=== PATIENT | male | born 1940 | race Two or more races ===

== ENCOUNTER → 2017-10-23 | Outpatient (CLI) | payer OTHER ==
[~2017-10-23] VITALS: Ht 165.1 cm; Wt 65.8 kg
== END | disposition home or self-care (01) ==
LOC: OFIC 805 08:18
DX: H61.21 Impacted cerumen, right ear (principal); M27.2 Inflammatory conditions of jaws; R09.81 Nasal congestion

== ENCOUNTER → 2017-12-05 06:31 | Outpatient (CLI) | payer OTHER | END | disposition home or self-care (01) | LOC: LAB 06:31 | DX: D57.3 Sickle-cell trait (principal); D51.0 Vitamin B12 deficiency anemia due to intrinsic factor deficiency; D51.1 Vitamin B12 deficiency anemia due to selective vitamin B12 malabsorption with proteinuria; D51.3 Other dietary vitamin B12 deficiency anemia; D63.1 Anemia in chronic kidney disease; N18.3 Chronic kidney disease, stage 3 (moderate); E08.65 Diabetes mellitus due to underlying condition with hyperglycemia; R97.0 Elevated carcinoembryonic antigen [CEA]; I10 Essential (primary) hypertension; F33.9 Major depressive disorder, recurrent, unspecified; D50.8 Other iron deficiency anemias; D51.8 Other vitamin B12 deficiency anemias ==

== ENCOUNTER 2017-12-25 08:18 | Outpatient (CLI) | payer OTHER ==
[~2017-12-25] VITALS: Ht 152.4 cm; Wt 65.8 kg
== END 2017-12-25 08:48 | disposition home or self-care (01) ==
LOC: OFIC 805 08:18
DX: H90.3 Sensorineural hearing loss, bilateral (principal)

== ENCOUNTER 2018-08-21 07:19 | Outpatient (CLI) | payer OTHER | END 2018-08-21 07:24 | disposition home or self-care (01) | LOC: LAB 07:19 | DX: D57.3 Sickle-cell trait (principal); D51.0 Vitamin B12 deficiency anemia due to intrinsic factor deficiency; D51.1 Vitamin B12 deficiency anemia due to selective vitamin B12 malabsorption with proteinuria; D51.3 Other dietary vitamin B12 deficiency anemia; D63.1 Anemia in chronic kidney disease; N18.3 Chronic kidney disease, stage 3 (moderate); E08.65 Diabetes mellitus due to underlying condition with hyperglycemia; R97.0 Elevated carcinoembryonic antigen [CEA]; I10 Essential (primary) hypertension; F33.8 Other recurrent depressive disorders; D50.8 Other iron deficiency anemias; D51.8 Other vitamin B12 deficiency anemias ==

== ENCOUNTER 2021-01-05 12:04 | Outpatient (CLI) | payer OTHER | END 2021-01-05 12:15 | disposition home or self-care (01) | LOC: SONOGRAMA 12:04 → MAMO-SONO 12:45 | PROVIDERS: ATTEND Internal Medicine Hematology & Oncology | DX: N18.30 Chronic kidney disease, stage 3 unspecified (principal); I11.0 Hypertensive heart disease with heart failure; E11.9 Type 2 diabetes mellitus without complications ==

== ENCOUNTER 2021-02-02 07:34 | Outpatient (CLI) | payer OTHER | END 2021-02-02 07:35 | disposition home or self-care (01) | LOC: NUCLEAR 07:34 | PROVIDERS: ATTEND Internal Medicine Hematology & Oncology | DX: D57.3 Sickle-cell trait (principal); D51.0 Vitamin B12 deficiency anemia due to intrinsic factor deficiency; M81.0 Age-related osteoporosis without current pathological fracture; R97.0 Elevated carcinoembryonic antigen [CEA] | CPT/HCPCS: 77080; 78816; A9552 ==

== ENCOUNTER → 2021-04-01 07:15 | Outpatient (CLI) | payer OTHER | END | disposition home or self-care (01) | LOC: NUCLEAR 07:00 | PROVIDERS: ATTEND Internal Medicine Cardiovascular Disease | DX: I25.9 Chronic ischemic heart disease, unspecified (principal); I50.1 Left ventricular failure, unspecified | CPT/HCPCS: 78452; 93017; A9500; J0153 ==

== ENCOUNTER 2021-12-01 08:00 | Outpatient (CLI) | payer OTHER | END 2021-12-01 08:30 | disposition home or self-care (01) | LOC: PPH VACUNA 08:00 | PROVIDERS: ATTEND Emergency Medicine Pediatric Emergency Medicine | DX: Z23 Encounter for immunization (principal); Z71.85 Encounter for immunization safety counseling ==

== ENCOUNTER 2022-03-01 10:39 | Outpatient (CLI) | payer OTHER | END 2022-03-01 10:51 | disposition home or self-care (01) | LOC: SONOGRAMA 10:39 | PROVIDERS: ATTEND Internal Medicine Hematology & Oncology | DX: E04.2 Nontoxic multinodular goiter (principal) ==

== ENCOUNTER 2022-08-10 13:40 | Outpatient (CLI) | payer OTHER | END 2022-08-10 13:50 | disposition home or self-care (01) | LOC: PPH VACUNA 13:40 | PROVIDERS: ATTEND Emergency Medicine Pediatric Emergency Medicine | DX: Z23 Encounter for immunization (principal) ==

== ENCOUNTER 2022-10-11 07:07 | Outpatient (CLI) | payer OTHER | END 2022-10-11 07:15 | disposition home or self-care (01) | LOC: SONOGRAMA 07:07 | PROVIDERS: ATTEND Internal Medicine Cardiovascular Disease | DX: I71.40 Abdominal aortic aneurysm, without rupture, unspecified (principal) ==

== ENCOUNTER 2022-12-10 19:02 | Inpatient (IN) | payer OTHER ==
[~2022-12-10] VITALS: Ht 165.1 cm; Wt 68.0 kg
[2022-12-10] MEDS ORDERED: GLIPIZIDE XL2.5 MG PO (19:29)
[2022-12-10] MEDS ORDERED: PANTOPRAZOLE SO20 MG PO (19:30)
[2022-12-10] MEDS ORDERED: GLUMETZA500 MG PO (19:30)
[2022-12-10] MEDS ORDERED: ENALAPRIL M1 MG/1 ML PO (19:30)
[2022-12-10] MEDS ORDERED: ARICEPT5 MG PO (19:30)
[2022-12-10] MEDS ORDERED: CHILDREN'S ASPI81 MG PO (19:31)
[2022-12-10] MEDS ORDERED: SIMVASTATIN5 MG PO (19:31)
[2022-12-10] MEDS ORDERED: PAROXETINE7.5 MG PO (19:31)
[2022-12-10] MEDS ORDERED: AMITRIPTYLINE HC5 GM MC (19:32)
[2022-12-10] MEDS ORDERED: BUPROPION XL450 MG PO (19:32)
[2022-12-10] MEDS ORDERED: CLONAZEPAM0.125 MG PO (19:32)
[2022-12-10] MEDS ORDERED: KAPSPARGO SPRIN25 MG PO (19:32)
[2022-12-14] MEDS ORDERED: ZITHROMAX500 MG PO (16:59)
[2022-12-14] MEDS ORDERED: AMOX-CLAV 875-1 EAC1 PO (16:59)
[2022-12-14] MEDS ORDERED: INTESTINEX680 M1 PO (16:59)
== END 2022-12-14 17:56 | disposition home or self-care (01) | DRG 683 ==
LOC: ER 19:02 → MEDI 12-11 16:26
PROVIDERS: ADMIT Internal Medicine; ATTEND Internal Medicine
PROC: B020ZZZ Computerized Tomography (CT Scan) of Brain (ICD-10-PCS; 2022-12-10)
PROC: BW24ZZZ Computerized Tomography (CT Scan) of Chest and Abdomen (ICD-10-PCS; 2022-12-10)
PROC: 4A12X4Z Monitoring of Cardiac Electrical Activity, External Approach (ICD-10-PCS; principal; 2022-12-11)
PROC: BT4JZZZ Ultrasonography of Kidneys and Bladder (ICD-10-PCS; 2022-12-11)
PROC: B24BYZZ Ultrasonography of Heart with Aorta using Other Contrast (ICD-10-PCS; 2022-12-11)
DX: N17.9 Acute kidney failure, unspecified (principal); J44.1 Chronic obstructive pulmonary disease with (acute) exacerbation; E86.0 Dehydration; R09.02 Hypoxemia; R55 Syncope and collapse; E11.22 Type 2 diabetes mellitus with diabetic chronic kidney disease; I12.9 Hypertensive chronic kidney disease with stage 1 through stage 4 chronic kidney disease, or unspecified chronic kidney disease; N18.9 Chronic kidney disease, unspecified; G30.0 Alzheimer's disease with early onset; F02.80 Dementia in other diseases classified elsewhere, unspecified severity, without behavioral disturbance, psychotic disturbance, mood disturbance, and anxiety; Z79.84 Long term (current) use of oral hypoglycemic drugs

== ENCOUNTER 2023-08-28 07:19 | Outpatient (CLI) | payer OTHER ==
[~2023-08-28 07:19] MED LIST: AMITRIPTYLINE HC5 GM MC; AMOX-CLAV 875-1 EAC1 PO; ARICEPT5 MG PO; BUPROPION XL450 MG PO; CHILDREN'S ASPI81 MG PO; CLONAZEPAM0.125 MG PO; ENALAPRIL M1 MG/1 ML PO; GLIPIZIDE XL2.5 MG PO; GLUMETZA500 MG PO; INTESTINEX680 M1 PO; KAPSPARGO SPRIN25 MG PO; PANTOPRAZOLE SO20 MG PO; PAROXETINE7.5 MG PO; SIMVASTATIN5 MG PO; ZITHROMAX500 MG PO
== END 2023-08-28 07:24 | disposition home or self-care (01) ==
LOC: NUCLEAR 07:19
PROVIDERS: ATTEND Internal Medicine Hematology & Oncology
DX: R97.0 Elevated carcinoembryonic antigen [CEA] (principal); D51.0 Vitamin B12 deficiency anemia due to intrinsic factor deficiency; D51.3 Other dietary vitamin B12 deficiency anemia; D57.3 Sickle-cell trait; D63.1 Anemia in chronic kidney disease; N18.32 Chronic kidney disease, stage 3b; E08.65 Diabetes mellitus due to underlying condition with hyperglycemia; I10 Essential (primary) hypertension; F33.9 Major depressive disorder, recurrent, unspecified; I71.43 Infrarenal abdominal aortic aneurysm, without rupture
CPT/HCPCS: 78816; A9552

== ENCOUNTER 2024-02-25 04:55 | Day surgery (SDC) | payer OTHER ==
[2024-02-20 11:40] LABS: INR 1.02; PARTIAL THROMBOPLASTIN TIME 25.5 SECONDS (22.0-34.0); PROTHROMBIN TIME 10.7 SECONDS (9.0-11.5)
[~2024-02-25 04:55] MED LIST changes: +AMOX1TAB5 PO; +PEPCID20 MG PO
[2024-02-25] MEDS ORDERED: CEFAZOLIN SODIUM 1,000 MG VIAL ONE (05:43)
[2024-02-25] MEDS ORDERED: IOVERSOL 320 MG/ML - 50 ML VIAL IV ONE ×2 (09:01→10:09)
[2024-02-25] MEDS ORDERED: FAMOTIDINE20 MG (09:49)
[2024-02-25] MEDS ORDERED: CLONAZEPAM1 MG (09:49)
[2024-02-25] MEDS ORDERED: GLIPIZIDE ER10 MG (09:49)
[2024-02-25] MEDS ORDERED: SUGAMMADEX SODIUM 200 MG/2 ML VIAL IV ONE (10:08)
== END 2024-02-25 16:25 | disposition home or self-care (01) ==
LOC: SURH 04:55 → CIR.AMB 04:55 → O/R 04:55 → SURH 10:15 → EDSTATUS 10:15 → SURH 12:15 → CIR.AMB 16:25 → O/R 02-26 16:42
PROVIDERS: ATTEND Surgery
DX: K81.0 Acute cholecystitis (principal)

== ENCOUNTER 2024-05-06 07:28 | Outpatient (CLI) | payer OTHER ==
[~2024-05-06 07:28] MED LIST changes: +CLONAZEPAM1 MG; +FAMOTIDINE20 MG; +GLIPIZIDE ER10 MG
== END 2024-05-06 07:35 | disposition home or self-care (01) ==
LOC: RAD 07:28
PROVIDERS: ATTEND Internal Medicine
DX: M54.50 Low back pain, unspecified (principal)

== ENCOUNTER → 2024-06-06 06:27 | Outpatient (CLI) | payer OTHER ==
[2024-06-06 07:21] LABS: PH,URINE 5.5 (5.0-8.0); URINE APPEARANCE Clear; URINE BILIRRUBIN Negative (NEGATIVE); URINE BLOOD Negative; URINE COLOR Yellow; URINE GLUCOSE Negative (NEGATIVE); URINE KETONE Negative (NEGATIVE); URINE LEUKOCYTE Trace; URINE NITRATE Negative; URINE PROTEIN Negative (NEGATIVE); URINE UROBILINOGEN 0.2 E.U./dl
[2024-06-06 07:22] LABS: URINE BACTERIA 17.6 uL (0.0-1933); URINE CAST 1.67 uL (0.0-1.40); URINE WBC 6.7 uL (0.0-23.2)
[2024-06-06 07:31] LABS: URINE RBC 1.8 uL (0.0-20.8)
== END | disposition home or self-care (01) ==
LOC: LAB 06:27
PROVIDERS: ATTEND Internal Medicine
DX: N18.30 Chronic kidney disease, stage 3 unspecified (principal); E11.9 Type 2 diabetes mellitus without complications; E78.9 Disorder of lipoprotein metabolism, unspecified; I11.9 Hypertensive heart disease without heart failure; Z12.11 Encounter for screening for malignant neoplasm of colon; E03.9 Hypothyroidism, unspecified; J43.9 Emphysema, unspecified; G30.9 Alzheimer's disease, unspecified; F32.A Depression, unspecified; D57.1 Sickle-cell disease without crisis; R55 Syncope and collapse

== ENCOUNTER → 2024-06-13 07:23 | Outpatient (CLI) | payer OTHER ==
[2024-06-13 09:00] LABS: ob NEGATIVE (NEGATIVE)
== END | disposition home or self-care (01) ==
LOC: LAB 07:23
PROVIDERS: ATTEND Internal Medicine
DX: N18.30 Chronic kidney disease, stage 3 unspecified (principal); E11.9 Type 2 diabetes mellitus without complications; E78.9 Disorder of lipoprotein metabolism, unspecified; I11.9 Hypertensive heart disease without heart failure; Z12.11 Encounter for screening for malignant neoplasm of colon; E03.9 Hypothyroidism, unspecified; J43.9 Emphysema, unspecified; G30.9 Alzheimer's disease, unspecified; D57.1 Sickle-cell disease without crisis; R55 Syncope and collapse

== ENCOUNTER → 2024-11-19 06:18 | Outpatient (CLI) | payer OTHER ==
[2024-11-19 07:26] LABS: HEMATOCRIT 41.8 % (39.0-48.0); HEMOGLOBIN 14.2 g/dL (13-16.00); MEAN CELL VOLUME 84.3 fL (80.0-100.00); MEAN CORPUSCULAR HEMOGLOBIN 28.5 pg (27.00-32.0); MEAN CORPUSCULAR HGB CONC 33.9 g/dl (32.0-36.0); PLATELET COUNT 252 K/uL (150-450); RED BLOOD COUNT 4.96 M/uL (4.00-6.00); RED CELL DISTRIBUTION WIDTH 14.9 % (11.5-14.5)
[2024-11-19 08:04] LABS: URINE APPEARANCE Clear; URINE BILIRRUBIN Negative (NEGATIVE); URINE BLOOD Negative; URINE COLOR Yellow; URINE GLUCOSE Negative (NEGATIVE); URINE KETONE Negative (NEGATIVE); URINE LEUKOCYTE Trace; URINE NITRATE Negative; URINE PROTEIN Negative (NEGATIVE); URINE UROBILINOGEN 0.2 E.U./dl
[2024-11-19 08:11] LABS: URINE BACTERIA 52.6 uL (0.0-1933); URINE EPITHELIAL CELLS 2.9 uL (0.0-38.8); URINE RBC 2.3 uL (0.0-20.8); URINE WBC 11.6 uL (0.0-23.2)
[2024-11-19 08:21] LABS: URINE CAST 0.29 uL (0.0-1.40)
[2024-11-19 08:26] LABS: ALBUMIN 3.7 gm/dL (3.4-5.0); BILIRUBIN TOTAL 0.38 mg/dL (0.3-1.2); CALCIUM 9.6 mg/dL (8.5-10.1); CHOL HDL RATIO 2.6 (0-5.0); CREATININE SERUM 1.65 mg/dL (0.70-1.30); FREE TRIODOTIRONINE 2.46 pg/ml (2.18-3.98); GFR 39.94; GLOBULINA 3.6 G/DL (2.4-3.5); POTASSIUM 4.98 mEq/L (3.5-5.1); T4 TOTAL 5.94 UG/DL (4.5-12.1); TOTAL PROTEIN 7.3 gm/dL (6.4-8.2); TSH 1.92 uIU/mL (0.358-3.74)
== END | disposition home or self-care (01) ==
LOC: LAB 06:18
PROVIDERS: ATTEND Internal Medicine
DX: E55.9 Vitamin D deficiency, unspecified (principal); I11.9 Hypertensive heart disease without heart failure; E11.9 Type 2 diabetes mellitus without complications; E78.9 Disorder of lipoprotein metabolism, unspecified; N18.30 Chronic kidney disease, stage 3 unspecified; D64.9 Anemia, unspecified; E03.9 Hypothyroidism, unspecified

== ENCOUNTER 2024-11-27 06:14 | Outpatient (CLI) | payer OTHER ==
[2024-11-27 10:53] LABS: ob NEGATIVE (NEGATIVE)
== END 2024-11-27 06:23 | disposition home or self-care (01) ==
LOC: LAB 06:14
PROVIDERS: ATTEND Internal Medicine
DX: E55.9 Vitamin D deficiency, unspecified (principal); I11.9 Hypertensive heart disease without heart failure; E11.9 Type 2 diabetes mellitus without complications; E78.9 Disorder of lipoprotein metabolism, unspecified; N18.30 Chronic kidney disease, stage 3 unspecified; D64.9 Anemia, unspecified; E03.9 Hypothyroidism, unspecified

== ENCOUNTER 2025-02-23 06:52 | Outpatient (CLI) | payer OTHER ==
[2025-02-23 07:42] LABS: BASO % 1.1 % (0.1-1.2); EOS # 0.43 (0.04-0.54); EOS % 6.5 % (0.7-7.0); LYMPH # 1.54 (1.18-3.74); LYMPH % 23.4 % (19.3-53.1); MEAN PLATELET VOLUME 10.60 fl (9.4-12.4); MONO # 0.86 (0.24-0.82); NEUT # 3.64 (1.56-6.13); NEUT % 55.1 % (34.0-71.1); RED CELL DISTRIBUTION WIDTH 14.7 % (11.6-14.4)
[2025-02-23 07:53] LABS: URINE APPEARANCE Clear; URINE BILIRRUBIN Negative (NEGATIVE); URINE BLOOD Negative; URINE COLOR Yellow; URINE GLUCOSE Negative (NEGATIVE); URINE KETONE Negative (NEGATIVE); URINE LEUKOCYTE Negative; URINE NITRATE Negative; URINE PROTEIN Negative (NEGATIVE); URINE UROBILINOGEN 0.2 E.U./dl
[2025-02-23 07:57] LABS: URINE BACTERIA 15.5 uL (0.0-1933); URINE WBC 6.4 uL (0.0-23.2)
[2025-02-23 07:58] LABS: MONO % 13.1 % (4.7-12.5)
[2025-02-23 08:03] LABS: URINE CAST 0.00 uL (0.0-1.40); URINE EPITHELIAL CELLS 0.6 uL (0.0-38.8); URINE RBC 1.9 uL (0.0-20.8)
[2025-02-23 08:44] LABS: ALT/SGPT 46.0 U/L (12-78); AST/SGOT 28.0 U/L (15-37); BILIRUBIN TOTAL 0.32 mg/dL (0.3-1.2); BUN CREA RATIO 10.0 (7.0-25.0); CHOL HDL RATIO 2.5 (0-5.0); CREATININE SERUM 1.54 mg/dL (0.70-1.30); GFR 43.25; GLOBULINA 3.5 G/DL (2.4-3.5); GLUCOSE FASTING 121.0 mg/dL (65-100); HDL 45.0 mg/dl (40-60); LDL 42.0 mg/dl (0-130); OSMOLALITY SERUM 289.0 MOSM/KG (275-295); TSH 2.04 uIU/mL (0.358-3.74); VLDL 24.0 (0-39)
== END 2025-02-23 06:55 | disposition home or self-care (01) ==
LOC: LAB 06:52
PROVIDERS: ATTEND Internal Medicine
DX: N18.30 Chronic kidney disease, stage 3 unspecified (principal); E11.9 Type 2 diabetes mellitus without complications; E78.9 Disorder of lipoprotein metabolism, unspecified; Z12.11 Encounter for screening for malignant neoplasm of colon; I11.9 Hypertensive heart disease without heart failure; J43.9 Emphysema, unspecified; G30.9 Alzheimer's disease, unspecified; F32.A Depression, unspecified; D57.1 Sickle-cell disease without crisis; R55 Syncope and collapse

== ENCOUNTER 2025-03-04 06:13 | Outpatient (CLI) | payer OTHER | END 2025-03-04 06:17 | disposition home or self-care (01) | LOC: LAB 06:13 | PROVIDERS: ATTEND Internal Medicine Endocrinology, Diabetes & Metabolism | DX: D53.9 Nutritional anemia, unspecified (principal); E78.2 Mixed hyperlipidemia; N39.0 Urinary tract infection, site not specified; E11.9 Type 2 diabetes mellitus without complications; E04.9 Nontoxic goiter, unspecified; E06.3 Autoimmune thyroiditis ==

== ENCOUNTER 2025-07-01 06:43 | Outpatient (CLI) | payer OTHER ==
[2025-07-01 07:34] LABS: BASO % 0.9 % (0.1-1.2); EOS # 0.34 (0.04-0.54); EOS % 5.1 % (0.7-7.0); LYMPH # 1.35 (1.18-3.74); LYMPH % 20.3 % (19.3-53.1); MEAN PLATELET VOLUME 10.80 fl (9.4-12.4); MONO # 0.80 (0.24-0.82); MONO % 12.0 % (4.7-12.5); NEUT # 4.06 (1.56-6.13); NEUT % 61.2 % (34.0-71.1); RED CELL DISTRIBUTION WIDTH 14.3 % (11.6-14.4)
[2025-07-01 08:14] LABS: ALT/SGPT 42.0 U/L (12-78); AST/SGOT 29.0 U/L (15-37); BILIRUBIN TOTAL 0.4 mg/dL (0.3-1.2); BUN CREA RATIO 11.0 (7.0-25.0); CHOL HDL RATIO 2.0 (0-5.0); CREATININE SERUM 1.63 mg/dL (0.70-1.30); GFR 40.51; GLOBULINA 3.5 G/DL (2.4-3.5); GLUCOSE FASTING 129.0 mg/dL (65-100); HDL 53.0 mg/dl (40-60); LDL 36.0 mg/dl (0-130); OSMOLALITY SERUM 289.0 MOSM/KG (275-295); TSH 1.02 uIU/mL (0.358-3.74); VLDL 17.0 (0-39)
== END 2025-07-01 06:47 | disposition home or self-care (01) ==
LOC: LAB 06:43
PROVIDERS: ATTEND Internal Medicine
DX: I11.9 Hypertensive heart disease without heart failure (principal); E78.2 Mixed hyperlipidemia; E03.9 Hypothyroidism, unspecified; E11.9 Type 2 diabetes mellitus without complications